=== PATIENT | male | born 1965 | race Hispanic/Latino ===

== ENCOUNTER 2024-02-18 13:47 | Inpatient (IN) | payer SELFPAY ==
--- NOTE | ~2024-02-18 | XR_ITS ---
EXAM: XR foot LT min 3V DATE: 02/18/2024 14:43 HISTORY: wound DISTAL 3RD METATARSAL PLANTAR SURFACE to foot . COMPARISON: None available. FINDINGS: Decreased mineralization. No fracture or dislocation. No lytic or blastic lesion. Joint sp aces are maintained. No erosion or periosteal change. Vascular calcification. Soft tissue swelling ov er the ball of foot. IMPRESSION: No acute osseous finding in the left foot. Reviewed, dictated and finalized at location K.
--- NOTE | ~2024-02-18 | XR_ITS ---
EXAM: XR foot LT min 3V DATE: 02/18/2024 17:52 HISTORY: infection . COMPARISON: 02/18/2024. FINDINGS: Osteopenia. No fracture or dislocation. No lytic or blastic lesion. Mild scattered degener ative change. Mild Achilles and plantar enthesopathy. No erosion or periosteal change. Soft tissue sw elling over the first MTP joint. Soft tissue ulceration at the ball of the foot. Vascular calcificati ons IMPRESSION: No acute osseous finding in the left foot. Reviewed, dictated and finalized at location K.
[2024-02-18 13:48] VITALS: BP 140/79; PULSE 85; RESP 18; TEMP 36.2; O2SAT 99
[2024-02-18] MEDS: CEFEPIME 2 GM/NS 50 ML 2 GM/50 ML BAG IVPB (17:45)
[2024-02-18 17:47] LABS: Basophils Percent Auto 0.3 % (0.2-1.2); Eosinophils Absolute Auto 0.1 K/mm3 (0-0.3); Eosinophils Percent Auto 0.6 % (0-4.4); Hemoglobin 14.3 g/dL (14.0-18.0); Immature Granulocyte Absolute 0.05 K/mm3 (0.00-0.031); Immature Granulocyte Percent A 0.4 % (0-0.5); Lymphocytes Percent Auto 12.2 % (18.3-44.2); Mean Corpuscular Hemoglobin 30.4 pg (26-34); Mean Corpuscular Volume 89.4 fl (80-100); Mean Platelet Volume 11.9 fl (7.4-10.4); Monocytes Absolute Auto 1.1 K/mm3 (0.1-0.6); Neutrophils Absolute Auto 10.9 K/mm3 (1.3-6.7); Neutrophils Percent Auto 78.5 % (45.5-73.1); Platelet Count Result 239 k/mm3 (150-375); White Blood Count 13.9 K/mm3 (4.5-10.0)
[2024-02-18 18:03] LABS: Alanine Aminotransferase 19 U/L (6-50); Albumin Level 4.2 g/dL (3.5-5.1); Alkaline Phosphatase 164 U/L (38-126); Anion Gap 9 mmol/L (4-12); Aspartate Amino Transferase 21 U/L (17-59); Bilirubin,Total 0.9 mg/dL (0.2-1.3); Blood Urea Nitrogen 19 mg/dL (9-20); CRP 3.9 mg/dL (<1.0); Calcium 9.3 mg/dL (8.4-10.2); Carbon Dioxide 25 mmol/L (22-30); Chloride 97 mmol/L (98-107); Estimated Glomerular Filt Rate > 60; Glucose 324 mg/dL (65-110); Potassium 3.9 mmol/L (3.4-5.0); Sodium 131 mmol/L (137-145)
[2024-02-18 18:15] VITALS: BP 145/84; PULSE 78; RESP 19; TEMP 36.6; O2SAT 97
[2024-02-18] MEDS: metroNIDAZOLE 500 MG/ISO 100ML 500 MG/100 ML BAG 100 MG IVPB (18:16)
[2024-02-18 18:31] VITALS: BP 144/81; PULSE 79; RESP 17; O2SAT 99
--- NOTE | 2024-02-18 19:45 | ADMGEN ---
This patient, Luis Nino, was admitted to 3 Medical Room 349-01. Patient/family oriented to hospital policies and general routines including ID bracelet, bed and alarms, visiting hours, pain management, procedures, bathroom and other care routines, personal items, smoking policy, room service/diet, and visiting hours. Information on how to activate the Rapid Response Team has been discussed. Patient/Family are encouraged to report perceived risks to care and to ask questions if they do not understand what they are told or what they should do.
--- NOTE | 2024-02-18 19:53 | ED.WOUNDLAC ---
HPI - Wound/Laceration General Chief Complaint: Wound/Laceration Stated Complaint: Wound on Left Foot Time Seen by Provider: 02/18/24 17:25 History of Present Illness HPI narrative: Patient with history of diabetes presents with diabetic foot ulcer, has been worsening over last week now with pain and drainage. No fevers or chills or nausea or vomiting Related Data Allergies Allergy/AdvReac Type Severity Reaction Status Date / Time No Known Allergies Allergy Verified 02/18/24 17:39 Review of Systems Review of Systems: All systems reviewed & are unremarkable except as noted in HPI and below Exam Narrative: EXAMINATION OF ORGAN SYSTEMS/BODY AREAS: Constitutional: Vital signs per nursing GENERAL:[No acute distress, non-toxic appearing.] HEAD: Normal with no signs of head trauma. EYES: EOMI, conjunctiva normal ENT: Hearing grossly intact LUNGS: Nonlabored breathing. HEART: [Regular rate and rhythm], well-perfused foot ABD: [Soft], [nontender to palpation] EXT: Normal range of motion SKIN: open ulcer to bottom of left foot with some slight drainage slightly tender NEURO: [Alert and oriented x 3. No gross focal sensory or strength deficits.] PSYCH: Normal affect Course Vital Signs Vital signs: Vital Signs Temperature 97.2 F L 02/18/24 13:48 Pulse Rate 85 02/18/24 13:48 Respiratory Rate 18 02/18/24 13:48 Blood Pressure 140/79 02/18/24 13:48 Pulse Oximetry 99 02/18/24 13:48 Oxygen Delivery Room Air 02/18/24 13:48 Temperature 97.8 F 02/18/24 18:15 Pulse Rate 79 02/18/24 18:31 Respiratory Rate 17 02/18/24 18:31 Blood Pressure 144/81 H 02/18/24 18:31 Pulse Oximetry 99 02/18/24 18:31 Oxygen Delivery Room Air 02/18/24 18:15 MDM - Wound/Laceration MDM Narrative Medical decision making narrative: patient presents with diabetic foot infection, elevated white count, elevated CRP. Foot x-ray without any obvious signs of osteomyelitis. Started on antibiotics, discussed with general surgeon and hospitalist for adm Lab Data 02/18/24 17:33 02/18/24 17:33 Labs: Lab Results 02/18/24 Range/Units 17:33 WBC 13.9 H (4.5-10.0) K/mm3 RBC 4.70 (4.6-6.20) M/mm3 Hgb 14.3 (14.0-18.0) g/dL Hct 42.0 (42.0-52.0) % MCV 89.4 (80-100) fl MCH 30.4 (26-34) pg MCHC 34.0 (32-36) g/dl RDW 12.0 (11.5-14.5) % Plt Count 239 (150-375) k/mm3 MPV 11.9 H (7.4-10.4) fl Immature Gran % (Auto) 0.4 (0-0.5) % Neut % (Auto) 78.5 H (45.5-73.1) % Lymph % (Auto) 12.2 L (18.3-44.2) % [place] % (Auto) 8.0 (2.6-8.5) % Eos % (Auto) 0.6 (0-4.4) % Baso % (Auto) 0.3 (0.2-1.2) % Lymph # (Auto) 1.70 (0.9-3.2) K/mm3 [place] # (Auto) 1.1 H (0.1-0.6) K/mm3 Eos # (Auto) 0.1 (0-0.3) K/mm3 Baso # (Auto) 0.0 (0.0-0.1) K/mm3 Abs Immat Gran (auto) 0.05 H (0.00-0.031) K/mm3 Absolute Neuts (auto) 10.9 H (1.3-6.7) K/mm3 Absolute Nucleated RBC 0.000 (0.0-0.012) K/mm3 Nucleated RBC % 0.0 (0.0-0.2) % Sodium 131 L (137-145) mmol/L Potassium 3.9 (3.4-5.0) mmol/L Chloride 97 L (98-107) mmol/L Carbon Dioxide 25 (22-30) mmol/L Anion Gap 9 (4-12) mmol/L BUN 19 (9-20) mg/dL Creatinine 0.50 L (0.7-1.3) mg/dL Estim Creat Clear Calc Not Reportable Estimated GFR > 60 (59 - ) Glucose 324 H (65-110) mg/dL Calcium 9.3 (8.4-10.2) mg/dL Total Bilirubin 0.9 (0.2-1.3) mg/dL AST 21 (17-59) U/L ALT 19 (6-50) U/L Alkaline Phosphatase 164 H (38-126) U/L C-Reactive Protein 3.9 H (<1.0) mg/dL Total Protein 8.0 (6.3-8.2) g/dL Albumin 4.2 (3.5-5.1) g/dL Discharge Plan Discharge Clinical Impression: Diabetic foot infection Patient Disposition: Still a Patient Condition: Stable
[2024-02-18 20:08] VITALS: BMI 24.0
[2024-02-18 21:36] VITALS: BP 131/71; PULSE 77; RESP 18; TEMP 36.9; O2SAT 99
[2024-02-18] MEDS: VANCOMYCIN 1,750 MG/NS 500 ML 1,750 MG/500 ML BAG 250 MG IVPB (21:48)
--- NOTE | 2024-02-18 23:02 | PM.IMHP ---
H&P: HPI History of Present Illness Date/Time: 02/18/24 23:02 Chief Complaint: Left foot pain Narrative: 58-year-old male with a PMHx: Of type 2 diabetes on insulin, presented to the emergency room with complaints of ongoing left foot pain and drainage. 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 He denies any fever chills nausea vomiting SOB or chest pain at this time. He reports he is compliant with his medication daily citing he takes Levemir 20 units a day and metformin 500 mg b.i.d.. Initial ED Work-up reveals: Initial vitals: b/p 140/79, rr 18, pr 85, sp02 99 % on RA T: 97.2 Leukocytosis 13.9, hyponatremia 131, elevated glucose 324, foot x-ray reveals no obvious signs of osteomyelitis, general surgeon consulted, patient admitted in the setting of type 2 diabetes with complication of diabetic foot surgical consult. Wound cultures pending, patient started on cefepime, metronidazole 500 mg IV, vancomycin IV. Review of Systems Review of Systems: All systems reviewed & are unremarkable except as noted in HPI and below PMFSH Social History Social History Smoking status: Never smoker Alcohol intake: never Substance use: never Substance use type: does not use Do You Feel Safe in your Home?: Yes Lack of Transportation: No Lack of Food: Never True Current Housing: I Have Housing Concerned About Future Housing: No Difficulty Paying Gas/Electric Bills: No Difficulty Paying for Meds: No Currently Unemployed: No Education: High School Diploma/GED Difficulty w/ Childcare or Family Care: No Spiritual care concerns: No Meds Home Medications and Allergies Home Medications Medication Instructions Recorded Confirmed Type No Home Medications 02/18/24 02/18/24 History Allergies Allergy/AdvReac Type Severity Reaction Status Date / Time No Known Allergies Allergy Verified 02/18/24 17:39 Vital Signs Vital Signs - 24 hr 02/18/24 13:48 02/18/24 18:15 02/18/24 18:31 Temperature 97.2 F L 97.8 F Pulse Rate 85 78 79 Respiratory Rate 18 19 17 Blood Pressure 140/79 145/84 H 144/81 H Pulse Oximetry 99 97 99 Oxygen Delivery Room Air Room Air 02/18/24 21:36 Temperature 98.4 F Pulse Rate 77 Respiratory Rate 18 Blood Pressure 131/71 Pulse Oximetry 99 Oxygen Delivery Exam Narrative: EXAMINATION OF ORGAN SYSTEMS/BODY AREAS: Constitutional: Vital signs per nursing, patient resting in bed in no acute distress, family member by the bedside provides translation GENERAL No acute distress, non-toxic appearing. HEAD: Normal with no signs of head trauma. EYES: EOMI, conjunctiva normal ENT: Hearing grossly intact LUNGS: Nonlabored breathing. HEART: Regular rate and rhythm, well-perfused foot ABD: [Soft], [nontender to palpation] EXT: Normal range of motion SKIN: open ulcer to bottom of left foot with some slight drainage slightly tender NEURO: Alert and oriented x 3. No gross focal sensory or strength deficits. PSYCH: Normal affect H&P: Results Labs Labs: Short CBC 02/18/24 Range/Units 17:33 WBC 13.9 H (4.5-10.0) K/mm3 Hgb 14.3 (14.0-18.0) g/dL Hct 42.0 (42.0-52.0) % Plt Count 239 (150-375) k/mm3 BMP 02/18/24 17:33 Sodium 131 L Potassium 3.9 Chloride 97 L Carbon Dioxide 25 BUN 19 Creatinine 0.50 L Glucose 324 H Calcium 9.3 Liver Function 02/18/24 Range/Units 17:33 Total Bilirubin 0.9 (0.2-1.3) mg/dL AST 21 (17-59) U/L ALT 19 (6-50) U/L Alkaline Phosphatase 164 H (38-126) U/L Albumin 4.2 (3.5-5.1) g/dL Pulse Oximetry Attestation: I personally reviewed and interpreted this pulse oximetry as follows: Imaging
[2024-02-18 23:03] LABS: Glucose Point of Care 439 mg/dl (65-105)
[2024-02-19] MEDS: INSULIN ASPART (*BKC) 100 UNITS/ML SUB-Q ×4 (01:29→17:27)
[2024-02-19 05:05] VITALS: BP 125/58; PULSE 62; RESP 16; TEMP 36.7; O2SAT 98
[2024-02-19 06:08] LABS: Basophils Absolute Auto 0.1 K/mm3 (0.0-0.1); Basophils Percent Auto 0.7 % (0.2-1.2); Eosinophils Absolute Auto 0.2 K/mm3 (0-0.3); Eosinophils Percent Auto 1.5 % (0-4.4); Hematocrit 39.2 % (42.0-52.0); Hemoglobin 13.1 g/dL (14.0-18.0); Immature Granulocyte Absolute 0.05 K/mm3 (0.00-0.031); Immature Granulocyte Percent A 0.5 % (0-0.5); Lymphocytes Absolute Auto 1.91 K/mm3 (0.9-3.2); Lymphocytes Percent Auto 17.2 % (18.3-44.2); Mean Corpuscular HGB Conc 33.4 g/dl (32-36); Mean Corpuscular Hemoglobin 30.4 pg (26-34); Mean Platelet Volume 11.6 fl (7.4-10.4); Neutrophils Absolute Auto 7.9 K/mm3 (1.3-6.7); Neutrophils Percent Auto 71.1 % (45.5-73.1); Platelet Count Result 220 k/mm3 (150-375); Red Blood Count 4.31 M/mm3 (4.6-6.20); Red Cell Distribution Width 12.1 % (11.5-14.5); White Blood Count 11.1 K/mm3 (4.5-10.0)
[2024-02-19 06:28] LABS: Estimated CRCL calculation 109 ml/min; Estimated Glomerular Filt Rate > 60
[2024-02-19 06:59] LABS: LDL Cholesterol Direct 62 mg/dL
[2024-02-19 07:18] LABS: Glucose Point of Care 248 mg/dl (65-105)
[2024-02-19 07:24] LABS: Hemoglobin A1C 12.7 % (<5.7)
[2024-02-19 09:07] LABS: Glucose Point of Care 271 mg/dl (65-105)
--- NOTE | 2024-02-19 09:27 | PM.CNGS ---
Assessment and Plan Assessment and plan (1) Diabetic foot infection: Code(s): E11.628 - Type 2 diabetes mellitus with other skin complications; L08.9 - Local infection of the skin and subcutaneous tissue, unspecified Status: Acute Assessment and Plan: will need good blood sugar control, IV antibiotics, wound care consult, may need operative incision and drainage History of Present Illness Consult details Consult date: 02/19/24 Reason for consult: wound care Requesting physician: Masoud Cordon MD Narrative: The patient is a 58-year-old male with insulin-dependent diabetes presenting to the emergency with a left diabetic foot infection. The patient reports he has had a wound on the plantar surface of his left foot between the 1st and 2nd metatarsal for approximately 2 months. He reports that over the last week the area has become more swollen, painful, and has begun draining purulent fluid. The patient denies any systemic symptoms including fevers, chills, appetite changes. Review of Systems Review of Systems: All systems reviewed & are unremarkable except as noted in HPI and below PMFSH Social History Social History Smoking status: Never smoker Alcohol intake: never Substance use: never Substance use type: does not use Do You Feel Safe in your Home?: Yes Lack of Transportation: No Lack of Food: Never True Current Housing: I Have Housing Concerned About Future Housing: No Difficulty Paying Gas/Electric Bills: No Difficulty Paying for Meds: No Currently Unemployed: No Education: High School Diploma/GED Difficulty w/ Childcare or Family Care: No Spiritual care concerns: No Comments PMH - IDDM PSH - none FH - DM Meds Home Medications and Allergies Home Medications Medication Instructions Recorded Confirmed Type No Home Medications 02/18/24 02/18/24 History Allergies Allergy/AdvReac Type Severity Reaction Status Date / Time No Known Allergies Allergy Verified 02/18/24 17:39 Vital Signs Vital Signs - 24 hr 02/18/24 13:48 02/18/24 18:15 02/18/24 18:31 Temperature 36.2 C L 36.6 C Pulse Rate 85 78 79 Respiratory Rate 18 19 17 Blood Pressure 140/79 145/84 H 144/81 H Pulse Oximetry 99 97 99 Oxygen Delivery Room Air Room Air 02/18/24 21:36 02/18/24 20:00 02/19/24 05:05 Temperature 36.9 C 36.7 C Pulse Rate 77 62 Respiratory Rate 18 16 Blood Pressure 131/71 125/58 L Pulse Oximetry 99 98 Oxygen Delivery Room Air Exam Const: General: cooperative, comfortable and no acute distress HENMT: Head: normal to inspection, normocephalic and atraumatic Eyes: General: appearance normal, both eyes and all related structures Neck: Neck: normal visual inspection, full ROM and no lymphadenopathy Resp: Effort & Inspection: normal respiratory effort Auscultation: clear to auscultation bilaterally Cardio: Rate: regular rate Rhythm: regular rhythm GI: Inspection: normal to inspection and non-distended GI Palp: No abdominal tenderness Skin: General skin exam: normal color and no rashes or lesions noted Neuro: General: patient oriented x3 and CN's II-XI intact bilaterally Extrem: Other: L plantar foot - btw 1st and 2nd Metatarsals there is an open area that measures approximately 4 x 3 cm with 2 punctate openings draining purulent material, there is a callus in this area however no overlying skin changes, moderate tenderness to palpation Results Labs 02/19/24 05:48 02/19/24 05:48 Labs: Abnormal lab results 02/18/24 02/18/24 02/19/24 Range/Units 17:33 21:42 05:04 WBC 13.9 H (4.5-10.0) K/mm3 RBC (4.6-6.20) M/mm3 Hgb (14.0-18.0) g/dL Hct (42.0-52.0) % MPV 11.9 H (7.4-10.4) fl Neut % (Auto) 78.5 H (45.5-73.1) % Lymph % (Auto) 12.2 L (18.3-44.2) % [place] % (Auto) (2.6-8.5) % [place] # (Auto) 1.1 H (0.1-
[2024-02-19 09:37] VITALS: O2SAT 96
[2024-02-19] MEDS: VANCOMYCIN 1,250 MG/NS 250 ML 1,250 MG/250 ML BAG 166.67 MG IVPB ×2 (10:05→21:21)
[2024-02-19] MEDS: INSULIN GLARGINE (*BKC) 100 UNITS/ML 20 UNITS SUB-Q (10:05)
[2024-02-19 12:06] LABS: Glucose Point of Care 340 mg/dl (65-105)
[2024-02-19 14:30] VITALS: BP 125/67; PULSE 63; RESP 16; TEMP 36.5; O2SAT 99
--- NOTE | 2024-02-19 15:06 | WPDPN ---
Progress Note: A&P Assessment and Plan (1) Diabetic foot infection: Code(s): E11.628 - Type 2 diabetes mellitus with other skin complications; L08.9 - Local infection of the skin and subcutaneous tissue, unspecified Status: Acute Assessment and Plan: Unknown last A1c, hold home medications metformin p.o. and Levemir -bedside glucose management, SSI -hypoglycemia protocol -general surgery consulted, appreciate recommendation and plan Patient is a 58-year-old [place] male with history of uncontrolled diabetes his A1c is 12.7 patient presented with left foot plantar aspect diabetic ulcer, patient is being treated with Flagyl and vancomycin, blood cultures are collected will follow-up, patient is not compliant with his diabetic medication, patient was seen by surgery service recommended to bring blood under control before the surgery, patient will be re-evaluated and further recommendation to follow, will have it network administrator discussed with the patient and further recommendation to follow (2) Uncontrolled diabetes mellitus: Status: Acute Assessment and Plan: Will continue present management and monitor blood sugar with sliding scale will have a it network administrator discussed with the patient. Plan Continue home medications: hold home medication metformin, Levemir VTE Prophylaxis: SCds DIET: NPO after midnight Anticipated hospital stay: > 2days Code Status: Full Subjective Date/time seen: 02/19/24 15:06 Interval history: Patient is a 58-year-old [place] male with history of uncontrolled diabetes his A1c is 12.7 patient presented with left foot plantar aspect diabetic ulcer, patient is being treated with Flagyl and vancomycin, blood cultures are collected will follow-up, patient is not compliant with his diabetic medication, patient was seen by surgery service recommended to bring blood under control before the surgery, patient will be re-evaluated and further recommendation to follow, will have it network administrator discussed with the patient and further recommendation to follow Review of Systems Review of Systems: All systems reviewed & are unremarkable except as noted in HPI and below Exam Narrative: Patient is comfortable, NAD HEENT: eyes are clear and none icteric LUNGS:CTA HEART: RR S1S2 ABD: BS+, Soft and nontender Lower extremities: no edema SKIN: nonjaundiced, left foot planter aspect between 1st and 2nd metatarsals, soft, not draining. sligh erythema. Neuro: grossly intact. Objective Data Vital Signs Vital Signs: Vital Signs - 24 hr 02/18/24 18:15 02/18/24 18:31 02/18/24 21:36 Temperature 36.6 C 36.9 C Pulse Rate 78 79 77 Respiratory Rate 19 17 18 Blood Pressure 145/84 H 144/81 H 131/71 Pulse Oximetry 97 99 99 Oxygen Delivery Room Air 02/18/24 20:00 02/19/24 05:05 02/19/24 09:37 Temperature 36.7 C Pulse Rate 62 Respiratory Rate 16 Blood Pressure 125/58 L Pulse Oximetry 98 96 Oxygen Delivery Room Air Room Air 02/19/24 10:00 02/19/24 14:30 Temperature 36.5 C Pulse Rate 63 Respiratory Rate 16 Blood Pressure 125/67 Pulse Oximetry 99 Oxygen Delivery Room Air Intake/Output Intake/Output: Intake & Output 02/16/24 02/17/24 02/18/24 02/19/24 23:59 23:59 23:59 23:59 Intake Total 150 1310 Balance 150 1310 Meds/Results Medications: Active Medications Generic Name Dose Route Start Last Admin Trade Name Freq PRN Reason Stop Dose Admin Dextrose 12.5 gm 02/18/24 23:18 Dextrose 50% 25 Gm/50 Ml Syringe IV PUSH PRN PRN Hypoglycemia Protocol Glucagon 1 mg 02/18/24 23:18 Glucagon For Inj 1 Mg Vial IM PRN PRN Hypoglycemia Protocol Glucose 15 gm 02/18/24 23:18 Glucose Oral Gel 15 Gm Of Glucse In 37.5 Gm Tube PO PRN PRN Hypoglycemia Protocol Vancomycin HCl 1,250 mg in 250 mls @ 166.667 mls/hr 02/19/24 10:00 02/19/24 10:05 Vancomycin 1,250 Mg/Ns 250 Ml IVPB
[2024-02-19 17:10] LABS: Glucose Point of Care 299 mg/dl (65-105)
[2024-02-19 20:44] VITALS: BP 122/61; PULSE 63; RESP 16; TEMP 36.6; O2SAT 99
[2024-02-19 20:53] LABS: Glucose Point of Care 300 mg/dl (65-105)
[2024-02-19] MEDS: INSULIN GLARGINE (*BKC) 100 UNITS/ML 14 UNITS SUB-Q (21:21)
[2024-02-20] VITALS (9 sets, daily range): BP systolic 114–146; BP diastolic 56–80; PULSE 57–76; RESP 12–20; TEMP 36.2–36.9; O2SAT 97–100; BMI 24.0
[2024-02-20 07:00] LABS: Hematocrit 39.6 % (42.0-52.0); Hemoglobin 13.4 g/dL (14.0-18.0); Mean Corpuscular HGB Conc 33.8 g/dl (32-36); Mean Corpuscular Hemoglobin 30.7 pg (26-34); Mean Corpuscular Volume 90.6 fl (80-100); Mean Platelet Volume 11.3 fl (7.4-10.4); Platelet Count Result 249 k/mm3 (150-375); Red Blood Count 4.37 M/mm3 (4.6-6.20); Red Cell Distribution Width 12.1 % (11.5-14.5); White Blood Count 10.4 K/mm3 (4.5-10.0)
[2024-02-20 07:13] LABS: Anion Gap 4 mmol/L (4-12); Blood Urea Nitrogen 18 mg/dL (9-20); Calcium 8.7 mg/dL (8.4-10.2); Carbon Dioxide 29 mmol/L (22-30); Chloride 101 mmol/L (98-107); Estimated CRCL calculation 109 ml/min; Estimated Glomerular Filt Rate > 60; Glucose 293 mg/dL (65-110); Magnesium 1.9 mg/dL (1.6-2.3); Sodium 134 mmol/L (137-145)
[2024-02-20 08:23] LABS: Glucose Point of Care 311 mg/dl (65-105)
[2024-02-20 09:29] LABS: Vancomycin Trough 8.9 ug/mL (10.0-20.0)
[2024-02-20] MEDS: INSULIN GLARGINE (*BKC) 100 UNITS/ML 20 UNITS SUB-Q (10:09)
[2024-02-20] MEDS: VANCOMYCIN 1,500 MG/NS 500 ML 1,500 MG/500 ML BAG 250 MG IVPB ×2 (10:09→21:10)
--- NOTE | 2024-02-20 10:24 | PC.NURSE ---
Patient NPO for breakfast, blood sugar 311. Per hospitalist, hold insulin aspart and give 20 units of Lantus instead.
--- NOTE | 2024-02-20 11:16 | PM.PNGS ---
Progress Note: A&P Assessment and Plan (1) Diabetic foot infection: Code(s): E11.628 - Type 2 diabetes mellitus with other skin complications; L08.9 - Local infection of the skin and subcutaneous tissue, unspecified Status: Acute Assessment and Plan: Diabetic foot ulcer to the plantar left foot with tunneling and undermining. There is purulence drainage coming from the wound and likely would need incision and drainage. Discussed the case with Dr. Stovall. We will continue local wound care and IV antibiotics. Will add him onto the surgical schedule for incision and drainage by Dr. Quiles. Description of the procedure, risks, benefits, alternatives, and expected postop care/wound care were discussed with the patient and his daughter. Patient agrees to proceed. We will keep him NPO for now. (2) Uncontrolled diabetes mellitus: Status: Acute Assessment and Plan: Continue with tight glycemic control, management per primary team. Plan I have discussed the patient's case and plan of care with Dr. Quiles. Subjective Subjective Date/Time Seen: 02/20/24 11:16 Patient reports: no new complaints and afebrile Interval history: Patient is primarily [place]-speaking, but his daughter is at the bedside providing translation with his permission. He reports some mild left foot pain at the area of the wound on his plantar foot. No change since admission. No other complaints at this time. Exam Const: General: comfortable and no acute distress Orientation/consciousness: patient oriented x3 Extrem: Left lower extremity: foot Details: vascular exam Details: dorsalis pedis pulse present, posterior tibial pulse present and normal capillary refill; no unusual warmth; no edema Other: Left foot with a tiny pinpoint open wound overlying the second metatarsal on the plantar aspect of the foot with surrounding callus and tenderness in this area. Purulent drainage coming from the open wound. I was able to probe in 2 cm deep with undermining from 9:00 to 1:00. Tunneling of 2.5 cm at 9 o'clock. Does not obviously probe to bone. Tenderness around all of the callused area. No surrounding erythema or significant edema of the foot. Significantly decreased sensation of the entire left foot. Objective Data Vital Signs Vital Signs: Vital Signs - 24 hr 02/19/24 14:30 02/19/24 20:44 02/20/24 04:51 Temperature 97.7 F 98 F 97.1 F L Pulse Rate 63 63 60 Respiratory Rate 16 16 16 Blood Pressure 125/67 122/61 118/65 Pulse Oximetry 99 99 99 02/20/24 10:00 Temperature 97.8 F Pulse Rate 60 Respiratory Rate 16 Blood Pressure 136/72 Pulse Oximetry 100 Intake/Output Intake/Output: Intake & Output 02/17/24 02/18/24 02/19/24 02/20/24 23:59 23:59 23:59 23:59 Intake Total 150 2049 250 Balance 150 2049 250 Meds/Results Medications: Active Medications Generic Name Dose Route Start Last Admin Trade Name Freq PRN Reason Stop Dose Admin Dextrose 12.5 gm 02/18/24 23:18 Dextrose 50% 25 Gm/50 Ml Syringe IV PUSH PRN PRN Hypoglycemia Protocol Glucagon 1 mg 02/18/24 23:18 Glucagon For Inj 1 Mg Vial IM PRN PRN Hypoglycemia Protocol Glucose 15 gm 02/18/24 23:18 Glucose Oral Gel 15 Gm Of Glucse In 37.5 Gm Tube PO PRN PRN Hypoglycemia Protocol Dextrose 1,000 mls @ 100 mls/hr 02/18/24 23:18 Dextrose 5% 1,000 Ml IVPB PRN PRN Hypoglycemia Protocol Vancomycin HCl 1,500 mg in 500 mls @ 250 mls/hr 02/20/24 10:00 02/20/24 10:09 Vancomycin 1,500 Mg/Ns 500 Ml IVPB 02/20/24 13:00 250 mls/hr Q8H LUCIO Administration Vancomycin HCl 1,500 mg in 500 mls @ 250 mls/hr 02/20/24 22:00 Vancomycin 1,500 Mg/Ns 500 Ml IVPB Q12H LUCIO Insulin Aspart 2 - 5 units 02/19/24 12:00 02/20/24 09:55 Insulin Aspart (*Bkc) 100 Units/Ml SUB-Q Not Given TIDWM LUCIO Protocol Insulin Glargine 14 units 02/19/24 21:00 02/19/24 21:
[2024-02-20 12:22] LABS: Glucose Point of Care 223 mg/dl (65-105)
[2024-02-20] MEDS: SODIUM CHLORIDE 0.9% IV 1,000 ML 100 ML IV CONT (12:22)
--- NOTE | 2024-02-20 12:26 | WPDPN ---
Progress Note: A&P Assessment and Plan (1) Diabetic foot infection: Code(s): E11.628 - Type 2 diabetes mellitus with other skin complications; L08.9 - Local infection of the skin and subcutaneous tissue, unspecified Status: Acute Assessment and Plan: Unknown last A1c, hold home medications metformin p.o. and Levemir -bedside glucose management, SSI -hypoglycemia protocol -general surgery consulted, appreciate recommendation and plan Patient is a 58-year-old [place] male with history of uncontrolled diabetes his A1c is 12.7 patient presented with left foot plantar aspect diabetic ulcer, patient is being treated with Flagyl and vancomycin, blood cultures are collected will follow-up, patient is not compliant with his diabetic medication, patient was seen by surgery service recommended patient will need I & D of the foot wound, possibly tomorrow, today patient's daughter is present and discussed patient diabetes is poorly controlled, will have family educator discussed with the patient and further recommendation to follow (2) Uncontrolled diabetes mellitus: Status: Acute Assessment and Plan: Will continue present management and monitor blood sugar with sliding scale will have a family educator discussed with the patient. Plan Continue home medications: hold home medication metformin, Levemir VTE Prophylaxis: SCds DIET: NPO after midnight Anticipated hospital stay: > 2days Code Status: Full Subjective Date/time seen: 02/20/24 12:26 Interval history: Patient is a 58-year-old [place] male with history of uncontrolled diabetes his A1c is 12.7 patient presented with left foot plantar aspect diabetic ulcer, patient is being treated with Flagyl and vancomycin, blood cultures are collected will follow-up, patient is not compliant with his diabetic medication, patient was seen by surgery service recommended patient will need I & D of the foot wound, possibly tomorrow, today patient's daughter is present and discussed patient diabetes is poorly controlled, will have family educator discussed with the patient and further recommendation to follow Review of Systems Review of Systems: All systems reviewed & are unremarkable except as noted in HPI and below Exam Narrative: Patient is comfortable, NAD HEENT: eyes are clear and none icteric LUNGS:CTA HEART: RR S1S2 ABD: BS+, Soft and nontender Lower extremities: no edema SKIN: nonjaundiced, left foot planter aspect between 1st and 2nd metatarsals, soft, not draining. sligh erythema. Neuro: grossly intact. Objective Data Vital Signs Vital Signs: Vital Signs - 24 hr 10/13/24 14:30 02/19/24 20:44 02/20/24 04:51 Temperature 36.5 C 36.6 C 36.2 C L Pulse Rate 63 63 60 Respiratory Rate 16 16 16 Blood Pressure 125/67 122/61 118/65 Pulse Oximetry 99 99 99 02/20/24 10:00 Temperature 36.6 C Pulse Rate 60 Respiratory Rate 16 Blood Pressure 136/72 Pulse Oximetry 100 Intake/Output Intake/Output: Intake & Output 02/17/24 02/18/24 02/19/24 02/20/24 23:59 23:59 23:59 23:59 Intake Total 150 2049 250 Balance 150 2049 250 Meds/Results Medications: Active Medications Generic Name Dose Route Start Last Admin Trade Name Freq PRN Reason Stop Dose Admin Dextrose 12.5 gm 02/18/24 23:18 Dextrose 50% 25 Gm/50 Ml Syringe IV PUSH PRN PRN Hypoglycemia Protocol Glucagon 1 mg 02/18/24 23:18 Glucagon For Inj 1 Mg Vial IM PRN PRN Hypoglycemia Protocol Glucose 15 gm 02/18/24 23:18 Glucose Oral Gel 15 Gm Of Glucse In 37.5 Gm Tube PO PRN PRN Hypoglycemia Protocol Dextrose 1,000 mls @ 100 mls/hr 02/18/24 23:18 Dextrose 5% 1,000 Ml IVPB PRN PRN Hypoglycemia Protocol Vancomycin HCl 1,500 mg in 500 mls @ 250 mls/hr 02/20/24 10:00 02/20/24 10:09 Vancomycin 1,500 Mg/Ns 500 Ml IVPB 02/20/24 13:00 250 mls/hr Q8H LUCIO Administration Vancomycin HCl
--- NOTE | 2024-02-20 12:28 | WPDHPUPDATE1 ---
History and Physical Update Update Date/Time: 02/20/24 12:28 History and Physical has been reviewed, including an updated exam of the patient. There are NO changes in the patient's condition. Risks, benefits, and alternatives have been discussed and questions answered. Patient agrees to proceed with procedure.
--- NOTE | 2024-02-20 13:46 | WPDANESEPPF ---
Anes - Initial Pre Proc Eval Procedure: Operation Date: 02/20/24 15:00 Proposed Procedures p Incision And Drainage Left Foot Wound - Marlyn Quiles MD Date/Time: 02/20/24 13:46 Surgeon: Masoud Cordon MD Pre Op Diagnosis: Diabetic foot Patient Data Age: 58 Gender: M Height: 1.73 m Weight: 71.8 kg Last Vital Signs Temp 36.6 C 02/20/24 10:00 Pulse 60 02/20/24 10:00 Resp 16 02/20/24 10:00 BP 136/72 02/20/24 10:00 Pulse Ox 100 02/20/24 10:00 O2 Del Method Room Air 02/19/24 10:00 Allergies Allergy/AdvReac Type Severity Reaction Status Date / Time No Known Allergies Allergy Verified 02/18/24 17:39 Home Medications Medication Instructions Recorded Confirmed Type No Home Medications 02/18/24 02/18/24 History Laboratory Tests 02/19/24 02/19/24 02/20/24 17:06 20:48 06:55 WBC 10.4 H K/mm3 (4.5-10.0) RBC 4.37 L M/mm3 (4.6-6.20) Hgb 13.4 L g/dL (14.0-18.0) Hct 39.6 L % (42.0-52.0) MCV 90.6 fl (80-100) MCH 30.7 pg (26-34) MCHC 33.8 g/dl (32-36) RDW 12.1 % (11.5-14.5) Plt Count 249 k/mm3 (150-375) MPV 11.3 H fl (7.4-10.4) Sodium 134 L mmol/L (137-145) Potassium 4.0 mmol/L (3.4-5.0) Chloride 101 mmol/L (98-107) Carbon Dioxide 29 mmol/L (22-30) Anion Gap 4 mmol/L (4-12) BUN 18 mg/dL (9-20) Creatinine 0.60 L mg/dL (0.7-1.3) Estim Creat Clear Calc 109 ml/min Estimated GFR > 60 (59 - ) Glucose 293 H mg/dL (65-110) POC Capillary Glucose 299 H mg/dl 300 H mg/dl (65-105) (65-105) Calcium 8.7 mg/dL (8.4-10.2) Magnesium 1.9 mg/dL (1.6-2.3) Vancomycin Trough 02/20/24 02/20/24 02/20/24 08:20 08:52 12:20 WBC RBC Hgb Hct MCV MCH MCHC RDW Plt Count MPV Sodium Potassium Chloride Carbon Dioxide Anion Gap BUN Creatinine Estim Creat Clear Calc Estimated GFR Glucose POC Capillary Glucose 311 H mg/dl 223 H mg/dl (65-105) (65-105) Calcium Magnesium Vancomycin Trough 8.9 L ug/mL (10.0-20.0) Patient hx anesthesia problems: none Family hx anesthesia problems: none Results Review: All pre-operative results and documents have been reviewed as part of the pre-operative evaluation. FOR[facility]LY [facility] Past Medical History Medical History (Updated 02/20/24 @ 13:47 by Frantz Mcrae DO) Uncontrolled diabetes mellitus Social History Social History Smoking status: Never smoker Alcohol intake: never Substance use: never Substance use type: does not use Do You Feel Safe in your Home?: Yes Lack of Transportation: No Lack of Food: Never True Current Housing: I Have Housing Concerned About Future Housing: No Difficulty Paying Gas/Electric Bills: No Difficulty Paying for Meds: No Currently Unemployed: No Education: High School Diploma/GED Difficulty w/ Childcare or Family Care: No Spiritual care concerns: No Anes - Eval Final PreProcedure Day of Procedure 02/20/24 13:46 Patient weight: normal Heart: regular rate and rhythm Lungs: clear to auscultation and normal air movement Airway: Mallampati scale class II Neurological: alert and oriented Last oral intake: >/= 8 hours ASA classification: III Emergent: no Anesthetic plan: proceed Anesthesia type and monitoring: general LMA and standard monitoring Results Review: All pre-operative results and documents have been reviewed as part of the pre-operative evaluation. Informe
[2024-02-20 14:19] LABS: Glucose Point of Care 231 mg/dl (65-105)
[2024-02-20] MEDS: BUPIVACAINE/EPINEPHRINE 0.5% 50 ML VIAL 20 ML INFILTRATE (15:37)
[2024-02-20] MEDS: LACTATED RINGERS 1,000 ML 30 ML IV CONT (15:53)
[2024-02-20 15:57] LABS: Glucose Point of Care 168 mg/dl (65-105)
--- NOTE | 2024-02-20 15:59 | W.PM.PROC2 ---
Procedure Note - Detailed Date of Procedure 02/20/24 Pre-op Diagnosis Left foot diabetic wound Post-op Diagnosis Same Procedure Performed complex incision and drainage left foot diabetic wound measuring 2 x 2 x 4 cm Surgeon Marlyn Quiles MD Anesthesia General and Local Indications 58-year-old male presenting with a diabetic foot infection in his left foot. The patient reports he has a chronic wound that recently has begun to worsen and drain. Findings Between the 1st and 2nd metatarsal space on the plantar surface of his left foot there is a wound draining purulent material measuring 2 x 2 x 4 cm tracking back to the bone Description of Procedure The patient was taken the operating room and placed in the supine position. After adequate induction of general anesthesia, the patient was prepped and draped in the normal sterile fashion. A time-out was then done to verify patient's identity, as well as procedure being performed. Began by localizing the area in and around this abscess cavity in his left foot. There was noted to be 2 punctate openings draining purulent material. These were connected and opened. Once the opening was enlarged, a copious amount of purulent drainage was noted. Then used the hemostat to bluntly dissect around this cavity. This cavity was noted to track towards his metatarsal bone. Once completely open and draining this area measured 2 x 2 x 4 cm. I then copiously irrigated the cavity with normal saline. Then packed the area with half-inch iodoform approximately 6 in to keep the area open and draining. Sterile dressing was then placed. The patient tolerated the procedure and was extubated postoperatively. He will be transferred to the recovery room in stable condition. Estimated Blood Loss 5 Drains No Packing Yes Pathology None sent Complications No immediate complications Condition Stable Disposition PACU [facility] Billing Surgery - Charge Forward: Surgery Billing
[2024-02-20 17:13] LABS: Glucose Point of Care 180 mg/dl (65-105)
[2024-02-20 20:16] LABS: Glucose Point of Care 269 mg/dl (65-105)
[2024-02-20] MEDS: HYDROcodone/acetaminophen (*CRX) 5-325 MG TABLET 1 TAB PO (21:11)
[2024-02-20] MEDS: INSULIN GLARGINE (*BKC) 100 UNITS/ML 14 UNITS SUB-Q (21:17)
[2024-02-21 05:54] LABS: Hematocrit 40.3 % (42.0-52.0); Hemoglobin 13.5 g/dL (14.0-18.0); Mean Corpuscular HGB Conc 33.5 g/dl (32-36); Mean Corpuscular Hemoglobin 30.1 pg (26-34); Mean Platelet Volume 11.1 fl (7.4-10.4); Platelet Count Result 257 k/mm3 (150-375); Red Blood Count 4.48 M/mm3 (4.6-6.20); Red Cell Distribution Width 11.9 % (11.5-14.5); White Blood Count 11.8 K/mm3 (4.5-10.0)
[2024-02-21 06:00] VITALS: BP 132/71; PULSE 78; RESP 20; TEMP 36.9; O2SAT 100
[2024-02-21 06:11] LABS: Anion Gap 6 mmol/L (4-12); Blood Urea Nitrogen 13 mg/dL (9-20); Calcium 8.6 mg/dL (8.4-10.2); Carbon Dioxide 25 mmol/L (22-30); Chloride 102 mmol/L (98-107); Estimated CRCL calculation 128 ml/min; Estimated Glomerular Filt Rate > 60; Glucose 186 mg/dL (65-110); Magnesium 1.9 mg/dL (1.6-2.3); Potassium 3.9 mmol/L (3.4-5.0); Sodium 133 mmol/L (137-145)
[2024-02-21] MEDS: metroNIDAZOLE 500 MG/ISO 100ML 500 MG/100 ML BAG 100 MG IVPB ×3 (07:59→21:04)
[2024-02-21 08:24] LABS: Glucose Point of Care 188 mg/dl (65-105)
[2024-02-21] MEDS: CEFEPIME 2 GM/NS 50 ML 2 GM/50 ML BAG IVPB ×2 (09:25→20:26)
[2024-02-21] MEDS: VANCOMYCIN 1,500 MG/NS 500 ML 1,500 MG/500 ML BAG 250 MG IVPB ×2 (10:50→22:24)
[2024-02-21 11:55] LABS: Glucose Point of Care 260 mg/dl (65-105)
[2024-02-21] MEDS: INSULIN ASPART (*BKC) 100 UNITS/ML SUB-Q ×2 (12:39→17:33)
[2024-02-21 13:53] VITALS: BP 123/61; PULSE 63; RESP 16; TEMP 36.4; O2SAT 98
--- NOTE | 2024-02-21 14:07 | PM.IMPN ---
Progress Note: A&P Assessment and Plan (1) Diabetic foot infection: Code(s): E11.628 - Type 2 diabetes mellitus with other skin complications; L08.9 - Local infection of the skin and subcutaneous tissue, unspecified Status: Acute Assessment and Plan: Patient presents with left foot plantar aspect diabetic ulcer He has been noncompliant with hid diabetic treatment. He was started on Cefepime, Flagyl and vancomycin after approrpiate cultures collected. Only on Vanco now. BCx NGTD Patient underwent complex incision and drainage left foot diabetic wound measuring 2 x 2 x 4 cm on 02/19 Apprecaite GenSurg input. Will resume cefepime and Flagyl. Continue Vanco. (2) Uncontrolled diabetes mellitus: Status: Acute Assessment and Plan: A1c is 12.7. The patient's blood glucose was reviewed on 02/20 Glucose remains poorly controlled. Bus Van Driver and Client Relationship Executive have been consulted and appreciate their input Continue AccuCheks covering with sliding scale. Hypoglycemia protocol available as needed. Patient is noncompliant with his medications - discussed at [facility] through the family official court interpreter in the room about the risks of continueing to be noncompliant with worsening infections, amputation and renal failure. He voices uderstanding Advance Lantus at night. Add oral agents. Continue current medications. Continue Diabetic diet Plan VTE Prophylaxis: SCds Code Status: Full Subjective Date/time seen: 02/21/24 14:07 Interval history: 58yo Wolof speaking male with history of uncontrolled diabetes here for diabetic foot ulcer. Assuming care. Chart reviewed. Foot pain well controled. Eating well. No n/v. No CP or SOB. Exam Narrative: AF 97.6 123/61 63 16 98% ra Gen - NARD Chest - CTA bilaterally, nml RR CV - RRR S1/S2 Abd - Soft, NT/ND, Positive BS Ext - 2+ DP pulses. Left foot dressing clean and dry. Neuro - Alert and oriented. Nonfocal exam. Psych - Nml mood and affect Skin - Warm and dry Objective Data Vital Signs Vital Signs: Vital Signs - 24 hr 02/20/24 15:53 02/20/24 16:00 02/20/24 16:15 Temperature 97.5 F L Pulse Rate 61 69 75 Respiratory Rate 12 19 18 Blood Pressure 114/56 L 118/67 116/74 Pulse Oximetry 100 97 100 Oxygen Delivery Simple Face Mask Simple Face Mask Room Air Oxygen Flow Rate 6 6 02/20/24 16:30 02/20/24 16:45 02/20/24 20:00 Temperature Pulse Rate 76 72 Respiratory Rate 15 14 Blood Pressure 114/70 114/67 Pulse Oximetry 100 100 Oxygen Delivery Room Air Room Air Room Air Oxygen Flow Rate 02/20/24 21:20 02/21/24 06:00 02/21/24 08:18 Temperature 98.4 F 98.4 F Pulse Rate 65 78 Respiratory Rate 20 20 Blood Pressure 146/80 H 132/71 Pulse Oximetry 98 100 Oxygen Delivery Room Air Oxygen Flow Rate 02/21/24 13:53 Temperature 97.6 F Pulse Rate 63 Respiratory Rate 16 Blood Pressure 123/61 Pulse Oximetry 98 Oxygen Delivery Oxygen Flow Rate Intake/Output Intake/Output: Intake & Output 02/18/24 02/19/24 02/20/24 02/21/24 23:59 23:59 23:59 23:59 Intake Total 150 2050 1190 1230 Balance 150 2050 1190 1230 Meds/Results Medications: Active Medications Generic Name Dose Route Start Last Admin Trade Name Freq PRN Reason Stop Dose Admin Hydrocodone Bitart/Acetaminophen 1 tab 02/20/24 16:57 02/20/24 21:11 Hydrocodone/Acetaminophen (*Crx) 5-325 Mg Tablet PO 1 tab Q4H PRN Administration Pain Rated 4-6 Dextrose 12.5 gm 02/18/24 23:18 Dextrose 50% 25 Gm/50 Ml Syringe IV PUSH PRN PRN Hypoglycemia Protocol Glucagon 1 mg 02/18/24 23:18 Glucagon For Inj 1 Mg Vial IM PRN PRN Hypoglycemia Protocol Glucose 15 gm 02/18/24 23:18 Glucose Oral Gel 15 Gm Of Glucse In 37.5 Gm Tube PO PRN PRN Hypoglycemia Protocol Dextrose 1,000 mls @ 100 mls/hr 02/18/24 23:18 Dextrose 5% 1,000 Ml IVPB PRN PRN Hypoglycemia
--- NOTE | 2024-02-21 16:20 | PM.PNGS ---
Progress Note: A&P Assessment and Plan (1) Diabetic foot infection: Code(s): E11.628 - Type 2 diabetes mellitus with other skin complications; L08.9 - Local infection of the skin and subcutaneous tissue, unspecified Status: Acute Assessment and Plan: wound much improved, cont abx, local wound care, likely home soon c po abx and local wound care Subjective Subjective Date/Time Seen: 02/21/24 16:20 Interval history: feels ok, decreased pain in L foot Review of Systems Review of Systems: All systems reviewed & are unremarkable except as noted in HPI and below Exam Const: General: cooperative, comfortable and no acute distress Skin: Other: L foot - unpacked, no drainage, decreased induration Objective Data Vital Signs Vital Signs: Vital Signs - 24 hr 02/20/24 16:30 02/20/24 16:45 02/20/24 20:00 Temperature Pulse Rate 76 72 Respiratory Rate 15 14 Blood Pressure 114/70 114/67 Pulse Oximetry 100 100 Oxygen Delivery Room Air Room Air Room Air 02/20/24 21:20 02/21/24 06:00 02/21/24 08:18 Temperature 36.9 C 36.9 C Pulse Rate 65 78 Respiratory Rate 20 20 Blood Pressure 146/80 H 132/71 Pulse Oximetry 98 100 Oxygen Delivery Room Air 02/21/24 13:53 Temperature 36.4 C Pulse Rate 63 Respiratory Rate 16 Blood Pressure 123/61 Pulse Oximetry 98 Oxygen Delivery Intake/Output Intake/Output: Intake & Output 02/18/24 02/19/24 02/20/24 02/21/24 23:59 23:59 23:59 23:59 Intake Total 150 0 1190 1330 Balance 150 2050 1190 1330 Meds/Results Medications: Active Medications Generic Name Dose Route Start Last Admin Trade Name Freq PRN Reason Stop Dose Admin Hydrocodone Bitart/Acetaminophen 1 tab 02/20/24 16:57 02/20/24 21:11 Hydrocodone/Acetaminophen (*Crx) 5-325 Mg Tablet PO 1 tab Q4H PRN Administration Pain Rated 4-6 Dextrose 12.5 gm 02/18/24 23:18 Dextrose 50% 25 Gm/50 Ml Syringe IV PUSH PRN PRN Hypoglycemia Protocol Glucagon 1 mg 02/18/24 23:18 Glucagon For Inj 1 Mg Vial IM PRN PRN Hypoglycemia Protocol Glucose 15 gm 02/18/24 23:18 Glucose Oral Gel 15 Gm Of Glucse In 37.5 Gm Tube PO PRN PRN Hypoglycemia Protocol Dextrose 1,000 mls @ 100 mls/hr 02/18/24 23:18 Dextrose 5% 1,000 Ml IVPB PRN PRN Hypoglycemia Protocol Vancomycin HCl 1,500 mg in 500 mls @ 250 mls/hr 02/20/24 22:00 02/21/24 10:50 Vancomycin 1,500 Mg/Ns 500 Ml IVPB 250 mls/hr Q12H LUCIO Administration Cefepime HCl 2 gm in 50 mls @ 100 mls/hr 02/21/24 09:00 02/21/24 09:25 Maxipime 2 Gm/Ns 50 Ml IVPB 100 mls/hr Q12H LUCIO Administration Metronidazole 500 mg in 100 mls @ 100 mls/hr 02/21/24 07:35 02/21/24 14:19 Flagyl 500 Mg/Iso Soln 100 Ml IVPB 100 mls/hr Q8HR LUCIO Administration Insulin Aspart 2 - 5 units 02/19/24 12:00 02/21/24 12:39 Insulin Aspart (*Bkc) 100 Units/Ml SUB-Q 3 units TIDWM LUCIO Administration Protocol Insulin Glargine 18 units 02/21/24 21:00 Insulin Glargine (*Bkc) 100 Units/Ml SUB-Q HS LUCIO Metformin HCl 500 mg 02/21/24 17:00 Metformin Hcl 500 Mg Tablet PO BIDWM [facility] Radiology Results: ITS Impressions Foot X-Ray 02/18/24 18:01 IMPRESSION: No acute osseous finding in the left foot. Labs Labs: Laboratory Results - last 24 hr 02/20/24 02/20/24 02/21/24 17:10 20:12 05:44 WBC 11.8 H RBC 4.48 L Hgb 13.5 L Hct 40.3 L MCV 90.0 MCH 30.1 MCHC 33.5 RDW 11.9 Plt Count 257 MPV 11.1 H Sodium 133 L Potassium 3.9 Chloride 102 Carbon Dioxide 25 Anion Gap 6 BUN 13 D Creatinine 0.50 L Estim Creat Clear Calc 128 Estimated GFR > 60 Glucose 186 H POC Capillary Glucose 180 H 269 H Calcium 8.6 Magnesium 1.9 02/21/24 02/21/24 08:20 11:51 WBC RBC Hgb Hct MCV MCH MCHC RDW Plt Count MPV So
[2024-02-21 17:01] LABS: Glucose Point of Care 260 mg/dl (65-105)
[2024-02-21] MEDS: metFORMIN HCL 500 MG TABLET PO (17:32)
[2024-02-21 20:19] LABS: Glucose Point of Care 326 mg/dl (65-105)
[2024-02-21] MEDS: INSULIN GLARGINE (*BKC) 100 UNITS/ML 18 UNITS SUB-Q (20:30)
[2024-02-21] MEDS: HYDROcodone/acetaminophen (*CRX) 5-325 MG TABLET 1 TAB PO (20:35)
[2024-02-21 21:23] LABS: Vancomycin Trough 10.3 ug/mL (10.0-20.0)
[2024-02-21 21:29] VITALS: BP 132/76; PULSE 62; RESP 20; TEMP 37; O2SAT 98
[2024-02-22] MEDS: metroNIDAZOLE 500 MG/ISO 100ML 500 MG/100 ML BAG 100 MG IVPB (05:13)
[2024-02-22 05:32] LABS: Hematocrit 38.4 % (42.0-52.0); Hemoglobin 12.9 g/dL (14.0-18.0); Mean Corpuscular HGB Conc 33.6 g/dl (32-36); Mean Corpuscular Hemoglobin 30.4 pg (26-34); Mean Corpuscular Volume 90.6 fl (80-100); Mean Platelet Volume 11.2 fl (7.4-10.4); Platelet Count Result 251 k/mm3 (150-375); Red Blood Count 4.24 M/mm3 (4.6-6.20); White Blood Count 9.5 K/mm3 (4.5-10.0)
[2024-02-22 05:46] LABS: Anion Gap 4 mmol/L (4-12); Blood Urea Nitrogen 10 mg/dL (9-20); Calcium 8.6 mg/dL (8.4-10.2); Carbon Dioxide 26 mmol/L (22-30); Chloride 103 mmol/L (98-107); Estimated CRCL calculation 128 ml/min; Estimated Glomerular Filt Rate > 60; Glucose 203 mg/dL (65-110); Potassium 3.8 mmol/L (3.4-5.0); Sodium 133 mmol/L (137-145)
[2024-02-22 06:00] VITALS: BP 139/63; PULSE 55; RESP 20; TEMP 36.6; O2SAT 100
[2024-02-22 08:33] LABS: Glucose Point of Care 196 mg/dl (65-105)
[2024-02-22] MEDS: metFORMIN HCL 500 MG TABLET PO (08:47)
[2024-02-22] MEDS: CEFEPIME 2 GM/NS 50 ML 2 GM/50 ML BAG IVPB (08:47)
[2024-02-22] MEDS: VANCOMYCIN 1,500 MG/NS 500 ML 1,500 MG/500 ML BAG 250 MG IVPB (09:22)
--- NOTE | 2024-02-22 11:19 | PM.DS ---
DS: Admitting Diagnosis Discharge Date 02/22/2024 Admitting Diagnosis Left foot pain DS: Discharge Diagnosis Discharge Diagnosis (1) Diabetic foot infection: Code(s): E11.628 - Type 2 diabetes mellitus with other skin complications; L08.9 - Local infection of the skin and subcutaneous tissue, unspecified Status: Acute Assessment and Plan: Patient presents with left foot plantar aspect diabetic ulcer He has been noncompliant with hid diabetic treatment. He was started on Cefepime, Flagyl and vancomycin after approrpiate cultures collected. Only on Vanco now. BCx NGTD Patient underwent complex incision and drainage left foot diabetic wound measuring 2 x 2 x 4 cm on 02/19 Appreciate GenSurg input. Will resume cefepime and Flagyl. Continue Vanco. DC iv abx Can dc on doxy and flagyl orally and oral norco for pain Continue dressing changes at home Pt dc with surgery MD follow up (2) Uncontrolled diabetes mellitus: Status: Acute Assessment and Plan: A1c is 12.7. The patient's blood glucose was reviewed on 02/20 Glucose remains poorly controlled. Rn Pacu and Aged Or Disabled Carer have been consulted and appreciate their input Continue AccuCheks covering with sliding scale. Hypoglycemia protocol available as needed. Patient is noncompliant with his medications - discussed at lent through the family staff interpreter in the room about the risks of continueing to be noncompliant with worsening infections, amputation and renal failure. He voices uderstanding Advance Lantus at night. Add oral agents. Continue current medications. Continue Diabetic diet Pt dc with DM educator follow up DS: Summary Hospital Course Hospital Course: Patient presents with left foot plantar aspect diabetic ulcer He has been noncompliant with hid diabetic treatment. He was started on Cefepime, Flagyl and vancomycin after approrpiate cultures collected. Only on Vanco now. BCx NGTD Patient underwent complex incision and drainage left foot diabetic wound measuring 2 x 2 x 4 cm on 02/19 Pt does not have insurance, surgery MD will follow in clinic, next week and DM educator will follow next week. Time Spent with Patient Time attestation: Total time spent providing and/or coordinating discharge services:50 minutes on day of DC Exam Narrative: Generally: chronically ill appearing Chest - CTA bilaterally, nml RR CV - RRR S1/S2 Abd - Soft, NT/ND, Positive BS Ext - 2+ DP pulses. Left foot dressing clean and dry. Neuro - Alert and oriented. Nonfocal exam. Psych - Nml mood and affect Skin - Warm and dry DS: Data Data Completed and Pending Labs on day of discharge: Labs from last 24 hours 02/22/24 02/22/24 02/21/24 08:30 05:10 20:47 WBC 9.5 RBC 4.24 L Hgb 12.9 L Hct 38.4 L MCV 90.6 MCH 30.4 MCHC 33.6 RDW 12.0 Plt Count 251 MPV 11.2 H Sodium 133 L Potassium 3.8 Chloride 103 Carbon Dioxide 26 Anion Gap 4 BUN 10 Creatinine 0.50 L Estim Creat Clear Calc 128 Estimated GFR > 60 Glucose 203 H POC Capillary Glucose 196 H Calcium 8.6 Magnesium 2.0 Vancomycin Trough 10.3 02/21/24 02/21/24 02/21/24 19:22 16:58 11:51 WBC RBC Hgb Hct MCV MCH MCHC RDW Plt Count MPV Sodium Potassium Chloride Carbon Dioxide Anion Gap BUN Creatinine Estim Creat Clear Calc Estimated GFR Glucose POC Capillary Glucose 326 H 260 H 260 H Calcium Magnesium Vancomycin Trough Preliminary micro results at discharge 02/18/24 17:34 Blood Culture - Preliminary Blood 02/18/24 17:33 Blood Culture - Preliminary Blood Discharge Plan Discharge Attending physician on discharge: Maliha Daniel Consulting providers: Yuliya Hendrix; Marlyn Quiles Discharging Clinician: Maliha Daniel Anticipated Discharge Date/Time: 02/22/24 11:14 Pa
--- NOTE | 2024-02-22 11:35 | PM.PNGS ---
Progress Note: A&P Assessment and Plan (1) Diabetic foot infection: Code(s): E11.628 - Type 2 diabetes mellitus with other skin complications; L08.9 - Local infection of the skin and subcutaneous tissue, unspecified Status: Acute Assessment and Plan: cont local wound care and abx, f/u 1 wk Subjective Subjective Date/Time Seen: 02/22/24 11:35 Interval history: feels good, no acute issues, no foot pain Review of Systems Review of Systems: All systems reviewed & are unremarkable except as noted in HPI and below Exam Const: General: cooperative, comfortable and no acute distress Extrem: Other: L foot - wound C/D/I, no drainage Objective Data Vital Signs Vital Signs: Vital Signs - 24 hr 02/21/24 13:53 02/21/24 21:29 02/21/24 20:00 Temperature 36.4 C 37.0 C Pulse Rate 63 62 Respiratory Rate 16 20 Blood Pressure 123/61 132/76 Pulse Oximetry 98 98 Oxygen Delivery Room Air 02/22/24 06:00 02/22/24 08:00 Temperature 36.6 C Pulse Rate 55 L Respiratory Rate 20 Blood Pressure 139/63 Pulse Oximetry 100 Oxygen Delivery Room Air Intake/Output Intake/Output: Intake & Output 02/19/24 02/20/24 02/21/24 02/22/24 23:59 23:59 23:59 23:59 Intake Total 2049 119 2920 1600 Balance 2049 1190 2920 1600 Meds/Results Medications: Active Medications Generic Name Dose Route Start Last Admin Trade Name Freq PRN Reason Stop Dose Admin Hydrocodone Bitart/Acetaminophen 1 tab 02/20/24 16:57 02/21/24 20:35 Hydrocodone/Acetaminophen (*Crx) 5-325 Mg Tablet PO 1 tab Q4H PRN Administration Pain Rated 4-6 Dextrose 12.5 gm 02/18/24 23:18 Dextrose 50% 25 Gm/50 Ml Syringe IV PUSH PRN PRN Hypoglycemia Protocol Glucagon 1 mg 02/18/24 23:18 Glucagon For Inj 1 Mg Vial IM PRN PRN Hypoglycemia Protocol Glucose 15 gm 02/18/24 23:18 Glucose Oral Gel 15 Gm Of Glucse In 37.5 Gm Tube PO PRN PRN Hypoglycemia Protocol Dextrose 1,000 mls @ 100 mls/hr 02/18/24 23:18 Dextrose 5% 1,000 Ml IVPB PRN PRN Hypoglycemia Protocol Vancomycin HCl 1,500 mg in 500 mls @ 250 mls/hr 02/20/24 22:00 02/22/24 09:22 Vancomycin 1,500 Mg/Ns 500 Ml IVPB 250 mls/hr Q12H LUCIO Administration Cefepime HCl 2 gm in 50 mls @ 100 mls/hr 02/21/24 09:00 02/22/24 08:47 Maxipime 2 Gm/Ns 50 Ml IVPB 100 mls/hr Q12H LUCIO Administration Metronidazole 500 mg in 100 mls @ 100 mls/hr 02/21/24 07:35 02/22/24 06:13 Flagyl 500 Mg/Iso Soln 100 Ml IVPB Infused Q8HR LUCIO Infusion Insulin Aspart 2 - 5 units 02/19/24 12:00 02/22/24 08:44 Insulin Aspart (*Bkc) 100 Units/Ml SUB-Q Not Given TIDWM LUCIO Protocol Insulin Glargine 18 units 02/21/24 21:00 02/21/24 20:30 Insulin Glargine (*Bkc) 100 Units/Ml SUB-Q 18 units HS LUCIO Administration Metformin HCl 500 mg 02/21/24 17:00 02/22/24 08:47 Metformin Hcl 500 Mg Tablet PO 500 mg BIDWM LUCIO Administration Radiology Results: ITS Impressions Foot X-Ray 02/18/24 18:01 IMPRESSION: No acute osseous finding in the left foot. Labs Labs: Laboratory Results - last 24 hr 02/21/24 02/21/24 02/21/24 11:51 16:58 19:22 WBC RBC Hgb Hct MCV MCH MCHC RDW Plt Count MPV Sodium Potassium Chloride Carbon Dioxide Anion Gap BUN Creatinine Estim Creat Clear Calc Estimated GFR Glucose POC Capillary Glucose 260 H 260 H 326 H Calcium Magnesium Vancomycin Trough 02/21/24 02/22/24 02/22/24 20:47 05:10 08:30 WBC 9.5 RBC 4.24 L Hgb 12.9 L Hct 38.4 L MCV 90.6 MCH 30.4 MCHC 33.6 RDW 12.0 Plt Count 251 MPV 11.2 H Sodium 133 L Potassium 3.8 Chloride 103 Carbon Dioxide 26 Anion Gap 4 BUN 10 Creatinine 0.50 L Estim Creat Clear Calc 128 Estimated GFR > 60 Glucose 203 H POC
[2024-02-22 12:07] LABS: Glucose Point of Care 226 mg/dl (65-105)
[2024-02-22] MEDS: INSULIN ASPART (*BKC) 100 UNITS/ML SUB-Q (12:34)
--- NOTE | 2024-02-22 13:52 | PC.NURSE ---
Extra Diabetic education provided before discharge to patient and daughter. Explanation of daily wound dressing changes. Daughter watched dressing change and verbalized understanding. Pt and daughter are aware that they need to make an appt for further follow up with the clinical educator and to the surgeons office for wound re check.
== END 2024-02-22 13:30 | disposition home or self-care (01) | DRG 364 ==
LOC: ANHED 17:50 → ANH3MED 18:49
PROVIDERS: Family Medicine; Nurse Practitioner; Surgery; Admitting Provider General Practice; Emergency Provider Emergency Medicine; PCP Physician Assistant; Visit Provider Family Medicine
PROC: 0K9W0ZZ Drainage of Left Foot Muscle, Open Approach (ICD-10-PCS; principal; 2024-02-20 15:00)
DX: E11.621 Type 2 diabetes mellitus with foot ulcer (principal); L97.525 Non-pressure chronic ulcer of other part of left foot with muscle involvement without evidence of necrosis; M60.074 Infective myositis, left foot; E11.628 Type 2 diabetes mellitus with other skin complications; L08.9 Local infection of the skin and subcutaneous tissue, unspecified; E11.65 Type 2 diabetes mellitus with hyperglycemia; Z91.148 Patient's other noncompliance with medication regimen for other reason
CPT/HCPCS: 36415; 73630; 80048; 80053; 80202; 82565; 82948; 83036; 83721; 83735; 85025; 85027; 86140; 87040; 96365; 99285; A9270; J0692; J1815; J1836; J2003; J2250; J2405; J2704; J3010; J3370; J7030; J7120